=== PATIENT | male | born 2000 | race Caucasian/White ===

== ENCOUNTER 2020-11-12 16:30 | Emergency (ER) | payer BC, OTHER ==
--- NOTE | 2020-11-12 18:09 | ERPHSYRPT ---
- History of Present Illness Patient Subjective Stated Complaint: L ankle pain Triage Nursing Assessment: pt to ED c/o L ankle pain from jumping off truck this morning and rolling ankle in hole. has been using crutches from home since injury. tylenol given 1 hr ago with relief. rates 5/10 pain. noted swelling to L ankle and tenderness to palp on assessment. Allergies/Adverse Reactions: No Known Drug Allergies Allergy (Unverified 11/12/20 16:46) Hx Tetanus, Diphtheria Vaccination/Date Given: Yes Hx Influenza Vaccination/Date Given: Yes Hx Pneumococcal Vaccination/Date Given: No Immunizations Up to Date: Yes Travel Risk - International Travel Have you traveled outside of the country in past 3 weeks: No - Coronavirus Screening Are you exhibiting any of the following symptoms?: No Close contact with a COVID-19 positive Pt in past 14-21 Days: No - Vaccine Status Have you recieved a Covid-19 vaccination: No - Past Medical History Pertinent Past Medical History: No - Past Surgical History Past Surgical History: Yes Other Surgical History: surgery on head when he was born to create soft spot - Social History Smoking Status: Never smoker Exposure to second hand smoke: No Drug Use: none Patient Lives Alone: No - Nursing Vital Signs Nursing Vital Signs: Initial Vital Signs Temperature 98.1 F 11/12/20 16:42 Pulse Rate 110 H 11/12/20 16:42 Respiratory Rate 18 11/12/20 16:42 Blood Pressure 146/70 11/12/20 16:42 O2 Sat by Pulse Oximetry 99 11/12/20 16:42 Pain Scale Pain Intensity 5 - Physical Exam General Appearance: no apparent distress, alert Eyes, Ears, Nose, Throat Exam: moist mucous membranes Neck Exam: normal inspection, non-tender, supple, full range of motion Cardiovascular/Respiratory Exam: chest non-tender, normal breath sounds, regular rate/rhythm, no respiratory distress Gastrointestinal/Abdominal Exam: non-tender, guarding Back Exam: normal inspection, normal range of motion, No CVA tenderness, No vertebral tenderness Hips Exam: bilateral: non-tender, normal inspection, normal range of motion, no evidence of injury Legs Exam: bilateral leg: non-tender, normal inspection, normal range of motion, no evidence of injury Knees Exam: bilateral knee: non-tender, normal inspection, normal range of mo tion, no evidence of injury Ankle Exam: right ankle: non-tender, normal inspection, normal range of motion, no evidence of injury, left ankle: pain, soft tissue tenderness, swelling, other (Tenderness palpation and swelling along medial and lateral left ankle. Overlying soft tissue intact. No signs of trauma. The involved extremity is neurovascular intact distally. Compartments are soft. Cap refill less than 2 seconds. PT DP pulses palpable.) Foot Exam: bilateral foot: non-tender, normal inspection, normal range of motion, no evidence of injury Neuro/Tendon Exam: normal sensation, normal motor functions Mental Status Exam: alert, oriented x 3, cooperative Skin Exam: normal color, warm, dry SpO2 Interpretation: normal SpO2: 99 O2 Delivery: Room Air - Course Nursing assessment & vital signs reviewed: Yes - Radiology Exams Ankle X-ray Interpretation: Interpreted by me (No fracture or dislocations. No soft tissue abnormalities. There is obvious soft tissue swelling around the ankle. ) Ordered Tests: Active Orders 24 hr Category Date Time Status ANKLE (3 VIEWS) Stat Exams 11/12/20 17:17 Taken - Progress Progress: improved Progress Note: Patient reassessed. He declined pain medication. X-ray negative for fracture dislocation. We will have patient follow-up at the orthopedic/podiatry clinic. Patient has his own crutches. We will provide patient with a Justice wrap. Patient voices no other complaints or concerns at this time. Will discharge home. He agrees to follow-up with podiatry as discussed. Portions of this note were created with voice recognition technology. There may be grammatical, spelling, punctuation or sound alike errors 11/12/20 18:09 Counseled pt/family regarding: diagnosis, need for follow-up, rad results - Departure Departure Disposition: Home Clinical Impression: Ankle sprain Condition: Stable Critical Care Time: No Instructions: Ankle Sprain (DC) Additional Instructions: Discharge/Care Plan PRIYA WALKER was seen on 11/12/20 in the Emergency Room. The patient was counseled regarding Diagnosis,Lab results, Imaging studies, need for follow up and when to return to the Emergency Room. Prescriptions given: Discharge Note I have spoken with the patient and/or caregivers. I have explained the patient's condition, diagnosis and treatment plan based on the information available to me at this time. I have answered the patient's and/or caregiver's questions and addressed any concerns. The patient and/or caregivers have as good understanding of the patient's diagnosis, condition and treatment plan as can be expected at this point. The vital signs have been stable. The patient's condition is stable and appropriate for discharge from the emergency department. The patient will pursue further outpatient evaluation with the primary care physician or other designated or consulting physician as outlined in the discharge instructions. The patient and/or caregivers are agreeable to this plan of care and follow-up instructions have been explained in detail. The patient and/or caregivers have received these instruction. The patient/and or caregivers are aware that any significant change in condition or worsening of symptoms should prompt an immediate return to this or the closest emergency department or call 911. Prescriptions: Ketorolac Tromethamine [Toradol] 10 mg PO TID 5 Days #15 tablet Outpatient Orders: Ortho Referral Time Frame: 1 Day, Facility: [facility], Location: [facility]
[2020-11-12 18:22] VITALS: BP 132/74; PULSE 76; O2SAT 98
--- NOTE | 2020-11-13 12:50 | XRAY ---
Indication: Pain following injury. Comparison: None 3 view left ankle demonstrates moderate soft tissue swelling, small distal fibula shaft healed fibrous cortical defect, and small cuboid accessory ossicle. No other bony, articular, or soft tissue abnormalities.
== END 2020-11-12 18:23 | disposition home or self-care (01) ==
LOC: ED 16:30
DX: X50.0XXA Overexertion from strenuous movement or load, initial encounter (principal); X50.9XXA Other and unspecified overexertion or strenuous movements or postures, initial encounter; Y93.9 Activity, unspecified; Y92.89 Other specified places as the place of occurrence of the external cause; Y99.8 Other external cause status
CPT/HCPCS: 73610; 99283